=== PATIENT | male | born 1940 | race Caucasian/White ===

== ENCOUNTER → 2016-09-25 | Outpatient (CLI) | payer OTHER | LOC: MMPC 11:11 | DX: E11.9 Type 2 diabetes mellitus without complications (principal); R55 Syncope and collapse; I10 Essential (primary) hypertension; G47.30 Sleep apnea, unspecified; E66.9 Obesity, unspecified; I25.10 Atherosclerotic heart disease of native coronary artery without angina pectoris; L40.9 Psoriasis, unspecified; B35.4 Tinea corporis; E03.9 Hypothyroidism, unspecified | CPT/HCPCS: 99213; G0463 ==

== ENCOUNTER → 2016-12-18 | Outpatient (CLI) | payer OTHER ==
[2016-12-18 12:51] LABS: BASOPHILS # (AUTO) 0.06 10*3/UL; BASOPHILS % (AUTO) 0.7 % (0-1); EOSINOPHILS # (AUTO) 0.45 10*3/UL; EOSINOPHILS % (AUTO) 5.2 % (0-8); HEMATOCRIT 42.2 % (42.0-52.0); LYMPHOCYTES # (AUTO) 1.99 10*3/uL; MEAN CORPUSCULAR HEMOGLOBIN 28.7 PG (27-31); MEAN CORPUSCULAR HGB CONC 33.2 g/dL (33-37); MEAN CORPUSCULAR VOLUME 86.7 FL (80-90); MEAN PLATELET VOLUME 11.6 FL (7.4-12.2); MONOCYTES # (AUTO) 0.69 10*3/UL (0.3-0.8); NEUTROPHILS # (AUTO) 5.44 10*3/UL; NEUTROPHILS % (AUTO) 62.8 % (50-80); RED BLOOD COUNT 4.87 10^6/uL (4.70-6.10)
[2016-12-18 12:53] LABS: PLATELET MORPHOLOGY COMMENT NORMAL MORPHOLOGY (NORM); RBC MORPHOLOGY COMMENT NORMAL MORPHOLOGY (NORM); WBC MORPHOLOGY COMMENT NORMAL MORPHOLOGY (NORM)
[2016-12-18 13:12] LABS: HEMOGLOBIN A1C 6.89 % (4.2-6.0)
[2016-12-18 13:14] LABS: BUN/CREATININE RATIO 19.09 (6-20); CALCIUM 10.1 mg/dL (8.7-10.7)
== END ==
LOC: MOB LAB 11:54
DX: E11.9 Type 2 diabetes mellitus without complications (principal); I10 Essential (primary) hypertension; E03.9 Hypothyroidism, unspecified; G47.30 Sleep apnea, unspecified
CPT/HCPCS: 36415; 80048; 83036; 84443; 85025

== ENCOUNTER 2016-12-27 02:38 | Inpatient (IN) | payer OTHER ==
[2016-12-27] MEDS ORDERED: Pantoprazole Inj 40 MG in Normal Saline Flush 10 ML IVP ONE (03:00)
[2016-12-27] MEDS ORDERED: ONDANSETRON 4 MG/2 ML VIAL IVP ONE (03:00)
[2016-12-27] MEDS ORDERED: Sodium Chloride 0.9% 1,000 ML PRIMARY IV ONE (03:00)
[2016-12-27] MEDS ORDERED: NORMAL SALINE 10 ML SYRINGE FLUSH IVP PRN (03:00)
[2016-12-27 03:23] LABS: BASOPHILS # (AUTO) 0.08 10*3/UL; BASOPHILS % (AUTO) 0.7 % (0-1); EOSINOPHILS # (AUTO) 0.12 10*3/UL; HEMATOCRIT 46.4 % (42.0-52.0); HEMOGLOBIN 15.6 g/dL (14.0-18.0); LYMPHOCYTES # (AUTO) 1.37 10*3/uL; MEAN CORPUSCULAR HEMOGLOBIN 28.8 PG (27-31); MEAN CORPUSCULAR HGB CONC 33.6 g/dL (33-37); MEAN CORPUSCULAR VOLUME 85.8 FL (80-90); MEAN PLATELET VOLUME 11.8 FL (7.4-12.2); MONOCYTES # (AUTO) 0.65 10*3/UL (0.3-0.8); MONOCYTES % (AUTO) 5.3 % (5-15); NEUTROPHILS # (AUTO) 10.01 10*3/UL; NEUTROPHILS % (AUTO) 81.6 % (50-80); RED BLOOD COUNT 5.41 10^6/uL (4.70-6.10)
[2016-12-27 03:26] LABS: PLATELET MORPHOLOGY COMMENT NORMAL MORPHOLOGY (NORM); RBC MORPHOLOGY COMMENT NORMAL MORPHOLOGY (NORM); WBC MORPHOLOGY COMMENT NORMAL MORPHOLOGY (NORM)
[2016-12-27 03:34] LABS: BUN/CREATININE RATIO 21.66 (6-20); C-REACTIVE PROTEIN 0.8 mg/dL (0.0-0.9); CALCIUM 10.9 mg/dL (8.7-10.7); SERUM ALBUMIN 4.2 g/dL (3.5-4.8)
[2016-12-27 05:36] LABS: BILIRUBIN,URINE NEGATIVE (NEG); COLOR,URINE YELLOW; GLUCOSE, URINE (UA) NEGATIVE (NEG); NITRATE,URINE NEGATIVE (NEG); OCCULT BLOOD,URINE NEGATIVE (NEG); PROTEIN,URINE NEGATIVE (NEG); UROBILINOGEN,URINE 0.2 EU/dL (0.2)
[2016-12-27 05:37] LABS: CLARITY,URINE CLEAR (CLEAR); URINE SAMPLE TYPE CLEAN CATCH URINE
--- NOTE | 2016-12-27 05:49 | PDOC ---
General Adult HPI - General Chief Complaint: Nausea / Vomiting / Diarrhea Stated Complaint: Abdominal pain, N/V Date Seen by Provider: 12/27/16 Time Seen by Provider: 02:40 Source: POSITIVE: Patient, Spouse Exam Limitations: POSITIVE: No limitations Nurse's Notes Reviewed & Considered: Yes - History of Present Illness Initial Comment: The patient is a 76-year-old male who is brought to the emergency room by his . Patient states that around 5 PM yesterday, approximately 9-1/2 hours [employer] he developed poorly localized paraumbilical abdominal pain/discomfort. He had one large emesis and he states that this made him feel better. He and his also state that his abdomen appears distended. He last ate around 4:30 PM. He' s not had any known fevers. No melena, hematochezia, diarrhea, dysuria or hematuria. He's had an appendectomy. He has history of adult-onset diabetes mellitus and has had a CVA. History of hypertension and hypothyroidism. Have you received a tetanus shot in the past 10 years?: Yes Body Location Affected: REPORTS: Abdomen Timing: REPORTS: Constant Duration: <24 hours (Approximately 9-1/2 hours) Severity: Moderate Quality: REPORTS: "Pain" Context: REPORTS: None Modifying Factors: improves with: Vomiting (Times one) Associated Symptoms: Abdominal distention. Emesis 1 Similar Symptoms Previously: No Recent Care Received: REPORTS: Denies Any Prior Injuries Related to Current Complaint?: No - Patient Home Medications Home Medications: Home Medications Methocarbamol [Robaxin] 1 tab PO Q8H PRN #30 tab 08/08/15 Lisinopril 1 tab PO BID #180 tab 11/14/15 Glipizide 0.5 tab PO QD #15 tab 06/25/16 Clotrimazole/Betamethasone Dip [Lotrisone Cream] 45 gm TOPICAL BID PRN #45 tube 08/07/16 Levothyroxine Sodium 1 tab PO DAILY #90 tab 08/07/16 Lisinopril 1 tab PO BID #180 tab 08/07/16 Clopidogrel Bisulfate [Plavix] 1 tab ORAL QD #90 tab 10/24/16 Blood Sugar Diagnostic [Onetouch Ultra Test Strips] 1 strip IN BID PRN #50 strip 11/05/16 - Patient Allergies Allergies/Adverse Reactions: Allergies Allergy/AdvReac Type Severity Reaction Status Date / Time cephalexin Allergy Severe hives Verified 12/27/16 02:46 swelling atorvastatin calcium Allergy Intermediate SWELLING Verified 12/27/16 02:46 [From Lipitor] Past Medical History - heen HEENT History: Denies History Cardiovascular History: Hypertension, Previous NM Additional Cardiovasular History: HAS HAD EPISODES OF SYNCOPE, WAS SEEN IN THE ER ON 03/20 AND 03/22/15, HAD HALTER MONITOR . WAS SEEN BY DR AMARO FOR FOLLOW UP HALTER SHOWED BRADYCARDIA AND HYPOTENSION. DR AMARO DID WANT PATIENT TOF/UWITH AN ECHO, AND CAROTID US AND STRESS TEST WHICH PATIENT HAS REFUSED TO DO. DR PALMA IS AWARE AND HE WILL CALL AND DISCUSS WITH DR AMARO Respiratory History: Sleep Apnea, Other (please comment) Additional Respiratory History: HAS BLUE NAILBEDS FROM SILVER COLLOID INGESTION / BIPAP USE Gastrointestinal History: Diverticulitis Genitourinary History: Denies History Endocrine History: Type 2 Diabetes (oral), Hypothyroidism Musculoskeletal History: Arthritis, Gout, Limited ROM Prosthesis or Implant: Yes (screw in R ankle) Neurological History: CVA Additional Neurological History: STROKE DEMENTIA/residual left sided weakness Blood Disorders: Clotting Disorders Additional Blood Disorders History: 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 L WRIST Anesthesia Reactions: No Malignant Hyperthermia: No Significant Family History: COPD Past Medical History Reviewed: Reviewed - No Changes ROS - Limitations ROS Limitations: No Limitations Constitution: REPORTS: Denies Symptoms Cardiovascular: REPORTS: Denies Cardiac Symptoms Respiratory: REPORTS: Denies Resp Symptoms Neurological: REPORTS: Denies Neuro Symptoms Gastrointestinal: REPORTS: Abdominal Pain, Vomitting Endocrine: REPORTS: Denies Symptoms Musculoskeletal: REPORTS: Denies MS Symptoms Genitourinary: REPORTS: Denies Symptoms Eyes: REPORTS: Denies Symptoms ENT: REPORTS: Denies Symptoms Skin: REPORTS: Denies Skin Symptoms Lympathic: REPORTS: Denies Lympathic Symptoms Immunologic: POSITIVE: Denies Symptoms Psychiatric: POSITIVE: Denies Psych Symptoms General Adult Exam - General Appearance General Appearance: POSITIVE: Alert, Cooperative, No Acute Distress, No Evidence of Trauma - HEENT HEENT: POSITIVE: Head Inspection Nml, Eyes Inspection Nml, Ears Inspection Nml, Nose Inspection Nml, Oral/Dental Inspect. Nml, Pharynx Inspect. Nml, PERRL, EOMI - Neck Neck: POSITIVE: Normal Inspection, Thyroid Normal - Respiratory Respiratory: POSITIVE: No Respiratory Distress, Breath Sounds Normal, Chest Non- Tender - Cardiovascular Cardiovascular: POSITIVE: Regular Rate & Rhythm, No Murmur, No Gallop, PMI Normal Peripheral Pulses: Radial (R): 2+, Radial (L): 2+ - Abdomen Abdomen: Soft: (All Quadrants), Normal Bowel Sounds: (All Quadrants), No Splenomegaly: (All Quadrants), No Hepatomegaly: (All Quadrants), No Guarding: ( All Quadrants), No Rebound: (All Quadrants), No Palpable Pulse: (All Quadrants) , No Palpabale Mass: (All Quadrants), No Rigidity: (All Quadrants), Tenderness Noted: (RUQ), (LUQ), (RLQ), (LLQ) Additional Abdominal Details: Abdominal examination shows bowel sounds to be present. Abdomen does appear somewhat distended. Patient does complain of poorly localized abdominal discomfort/pain on direct palpation diffusely. No rebound. No guarding. No masses or organomegaly. - Back Back: POSITIVE: Normal Inspection - Skin Skin: POSITIVE: Normal Color, Warm, Dry, No Rash - Extremities Extremity: Non-Tender: (All Extremities), Normal ROM: (All Extremities), Normal Inspection: (All Extremities) - Neurological / Psychological Neurological: POSITIVE: Oriented X3, furniture cleaner Normal As Tested, Motor Normal, Sensation Normal, 5, 6 Images - Complete Complete: 1 - Discomfort on direct palpation; some distention. General Adult Progress - Results Reviewed by me Xrays/CTs/US Reviewed by me: Yes Discussed with Radiologist: Yes Radiology Findings: CT scan of abdomen and pelvis with IV contrast shows dilated loops of small bowel throughout the abdomen which is most significant within the J jejunum. No definite transition point seen. Compatible with either an ileus or low-grade partial small bowel obstruction. Also reported are multiple 4 cm centrilobular nodular opacities in the lower lobes. Lab Results Reviewed: Yes Lab Results:: Laboratory Results 12/27/16 12/27/16 Range/Units 03:20 05:32 WBC 12.26 H (4.8-10.8) 10^3/uL RBC 5.41 (4.70-6.10) 10^6/uL Hgb 15.6 (14.0-18.0) g/dL Hct 46.4 (42.0-52.0) % MCV 85.8 (80-90) FL MCH 28.8 (27-31) PG MCHC 33.6 (33-37) g/dL RDW Std Deviation 45.6 (39-50) fL RDW Coeff of Chaitanya 14.5 (11.5-14.5) % Plt Count 257 (140-350) 10*3/uL MPV 11.8 (7.4-12.2) FL Immature Gran % (Auto) 0.2 (0-5) % Neut % (Auto) 81.6 H (50-80) % Lymph % (Auto) 11.2 (10-50) % Sharp % (Auto) 5.3 (5-15) % Eos % (Auto) 1.0 (0-8) % Baso % (Auto) 0.7 (0-1) % Immature Gran # (Auto) 0.03 10*3/UL Neut # (Auto) 10.01 10*3/UL Lymph # (Auto) 1.37 10*3/uL Sharp # (Auto) 0.65 (0.3-0.8) 10*3/UL Eos # (Auto) 0.12 10*3/UL Baso # (Auto) 0.08 10*3/UL WBC Morphology Comment Normal morphology (NORM) Plt Morphology Comment Normal morphology (NORM) RBC Morph Comment Normal morphology (NORM) Sodium 141 (135-145) meq/L Potassium 4.1 (3.8-5.2) meq/L Chloride 101 (98-112) meq/L Carbon Dioxide 26 (23-33) meq/L Anion Gap 14 (5-20) BUN 26 H (7-22) mg/dL Creatinine 1.2 (0.70-1.50) mg/dL Estimated GFR (>60 ml/min/1.73m(2)) BUN/Creatinine Ratio 21.66 H (6-20) Glucose 273 H (78-110) mg/dL Calculated Osmolality 306.0 H (267-292) mOsm/kg Calcium 10.9 H (8.7-10.7) mg/dL Total Bilirubin 1.0 (0.3-1.2) mg/dL AST 24 (21-57) IU/L ALT 26 (21-72) IU/L Alkaline Phosphatase 96 (38-126) IU/L C-Reactive Protein 0.8 (0.0-0.9) mg/dL Total Protein 8.4 H (6.1-8.0) g/dL Albumin 4.2 (3.5-4.8) g/dL Globulin 4.2 H (2.50-4.10) g/dL Albumin/Globulin Ratio 1.00 L (1.3-2.0) mg/g Amylase 65 (30-110) U/L Lipase 28 (23-300) IU/L Ur Collection Type Clean catch urine Urine Color Yellow Urine Clarity Clear (CLEAR) Urine pH 7.0 (5.0-8.5) Ur Specific [place] 1.010 (1.005-1.030) Urine Protein Negative (NEG) mg/dl Urine Glucose (UA) Negative (NEG) mg/dL Urine Ketones Negative (NEG) Urine Occult Blood Negative (NEG) Urine Nitrate Negative (NEG) Urine Bilirubin Negative (NEG) Urine Urobilinogen 0.2 (0.2) EU/dL Ur Leukocyte Esterase Negative (NEG) Ur Culture Indicated? Culture not set - Patient's Progress Pain Medication Addressed: POSITIVE: Patient Refused School/Work Release Addressed: POSITIVE: Not Applicable Re-Examine Time: 05:20 Re-Examine Comment: Diagnosis discussed with patient and his . Case discussed with Dr. Lockett, hospitalist and Dr. Walters, surgeon. Patient admitted for further evaluation and treatment. Status: POSITIVE: Unchanged, Re-Examined Antibiotics Given: No - Consult Consult (If Yes, Name of Consulting MD & Time Called): Yes (Dr. Lockett, hospitalist and Dr. Walters, surgeon, [id number]) Consulting MD will see pt:: POSITIVE: [facility] Admit Counseled: POSITIVE: Patient, Family, RE: Lab Results, RE: Radiology Results, RE : DX, RE: Need for F/U Patient Care Time - Estimated PCT Patient Care Time (In Minutes): 50 Vital Signs - Recent Vital Signs Vital Signs: Vital Signs (Last 8 hours) Temp Pulse Resp BP Pulse Ox 12/27/16 02:38 97.4 F 88 18 178/111 96 - VS Reviewed Vital Signs Reviewed: Yes Discharge Clinical Impression: Nausea and vomiting, Small bowel obstruction Condition: Fair Date Decision to Admit to Inpatient: 12/27/16 Time Decision to Admit to Inpatient: 05:00
--- NOTE | 2016-12-27 07:06 | PDOC ---
History and Physical - History of Present Illness Date and Time of Service: 12/27/2016 7:53 AM Chief Complaint: Abdominal pain and vomiting that started 5 PM yesterday History of Present Illness: This is a 76 years old male with medical history significant for history of diabetes, hypertension, hypothyroidism, history of previous heart attacks in the and did not have any intervention, history of previous stroke in the with some residual weakness on the left side who presented to the hospital with history of abdominal pain felt in the mid upper abdomen started at 5 PM pain yesterday was severe, constant was nauseated then at midnight pain got worse then he vomited and because of that he came into the ER. Evaluation in the ER suggested that there is a bowel obstruction he was given fluids at and had NG and then he was admitted. Currently he said he has some discomfort in his abdomen he is rating his pain about 1-2 out of 10. There is no radiation. He is not nauseated. his abdominal is bloated. Last time he had a bowel movement he said was yesterday. Past Medical History Medical History: 1. Diabetes on oral hypoglycemic. 2. Hypertension. 3. Coronary artery disease status post [place]. His ago. 4. Sleep apnea. 5. History of CVA. 6. Hypothyroidism. 7. 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 Tonsillectomy. 2. Appendectomy. 3. Fracture left hand needed surgery in 2014. 4. Cataract. 5. History of right ankle fracture needed surgery Pertinent Family History: Father from alcoholism, mother had ischemic bowel Tobacco Use: Never Smoker Substance Use Type: None Alcohol Use: Other (Used to drink when he was younger) Medication / Allergies Home Medications: Home Medications Medication Instructions Recorded Confirmed Type Methocarbamol [Robaxin] 1 tab PO Q8H PRN #30 tab 08/08/15 12/27/16 Clinic Lisinopril 1 tab PO BID #180 tab 11/14/15 12/27/16 Clinic Glipizide 0.5 tab PO QD #15 tab 06/25/16 12/27/16 Clinic Clotrimazole/Betamethasone Dip 45 gm TOPICAL BID PRN #45 tube 08/07/16 12/27/16 Clinic [Lotrisone Cream] Levothyroxine Sodium 1 tab PO DAILY #90 tab 08/07/16 12/27/16 Clinic Lisinopril 1 tab PO BID #180 tab 08/07/16 12/27/16 Clinic Clopidogrel Bisulfate [Plavix] 1 tab ORAL QD #90 tab 10/24/16 12/27/16 Clinic Blood Sugar Diagnostic [Onetouch 1 strip IN BID PRN #50 strip 11/05/16 12/27/16 Clinic Ultra Test Strips] Allergies/Adverse Reactions: Allergies Allergy/AdvReac Type Severity Reaction Status Date / Time cephalexin Allergy Severe hives Verified 12/27/16 07:22 swelling atorvastatin calcium Allergy Intermediate SWELLING Verified 12/27/16 07:22 [From Lipitor] Review of Systems - Review of Systems All Systems: Reviewed & No Additional Complaints Except as Stated Exam - General General Appearance: POSITIVE: Obese Additional General Exam Details: Appears in minimal discomfort - Head Head Exam: POSITIVE: Normal Inspection, Atraumatic - Eye Eye Exam: POSITIVE: Normal Appearance - ENT ENT Exam: POSITIVE: Normal Exam - Neck Neck Exam: POSITIVE: Normal Inspection - Respiratory Respiratory Exam: POSITIVE: Clear to Auscultation - Bilaterally - Cardiovascular Cardiovascular Exam: POSITIVE: RRR - GI/Abdominal GI/Abdominal Exam: POSITIVE: Non Tender, Non Distended, Soft Additional GI/Abdominal Exam Details: Bowel sounds are sluggish - Rectal Rectal Exam: POSITIVE: Deferred - External Exam: POSITIVE: Deferred - Extremities Extremities Exam: POSITIVE: Normal Inspection Additional Extremities Exam Details: Scar of previous operation noted on the right ankle. Psoriasis is noted in the lower extremities and both upper extremities - Back Back Exam: POSITIVE: Normal Inspection - Neurological Neurological Exam: POSITIVE: Alert, Oriented x 3, CN II-XII Intact, Moves All Extremities Equally - Psychiatric Psychiatric Exam: POSITIVE: Normal Affect - Integumentary Integumentary Exam: POSITIVE: Normal Color Results - Labs CBC and BMP: 12/27/16 03:20 12/27/16 03:20 - Imaging Status: Report Reviewed by Me (There are mildly dilated loops of small bowel throughout the abdomen which is most significant within the jejunum. No definite transition point is seen. This is either an ileus versus low-grade partial small bowel obstruction. There are multiple 4 mm central lobular nodular opacities seen within the lower lobe may be secondary to aspiration. Follow-up CT is recommended) Assessment and Plan - Patient Problems (1) Small bowel obstruction Current Visit: Yes Status: Acute Comment: CT per discussion with the ER physician suggest bowel obstruction, will treat him conservatively with fluids, pain medication and antiemetics and NG suction. Will repeat x-ray tomorrow in a.m. (2) Hypertension Current Visit: Yes Status: Acute Comment: We'll put him on enalapril IV if his blood pressure more than 160 systolic (3) Diabetes Current Visit: Yes Status: Acute Comment: Will put him on sliding scale insulin. (4) History of factor V Leiden mutation Current Visit: Yes Status: Chronic Comment: Apparently he is on Plavix as he could not tolerate the Coumadin. He is been on plavix since the 90s. I Think we'll put him on Lovenox for prophylaxis and we'll hold the Plavix. (5) Pulmonary nodules Current Visit: Yes Status: Acute Comment: There is questionable nodules on the CT this need follow-up later on as an outpatient Photo / Body Diagrams - Uploaded Photos Uploaded Photos:
[2016-12-27] MEDS ORDERED: MORPHINE SULFATE 2 MG/1 ML IVP PRN (07:17)
[2016-12-27] MEDS ORDERED: ONDANSETRON 4 MG/2 ML VIAL IVP PRN (07:17)
[2016-12-27] MEDS ORDERED: LIDOCAINE W/ SODIUM BICARB 0.5 ML SYR SUBD PRN (07:17)
[2016-12-27] MEDS ORDERED: Sodium Chloride 0.9% 1,000 ML PRIMARY IV SCH (07:17)
[2016-12-27] MEDS ORDERED: ENALAPRILAT DIHYDRATE 1.25 MG/1 ML VIAL IVP PRN (07:47)
--- NOTE | 2016-12-27 08:57 | CONSULT ---
Consult Note - Consult Consult Date: 12/27/16 Reason for Consult: PreOp Consulation : General Surgery Requesting Physician: Dr. Lockett Primary Care Provider: Andrew Fall MD - History of Present Illness History of Present Illness: This is a 76-year-old male who comes in with a one-day history of abdominal pain. Pain started at 5:00 PM on 12/26/2016. Shortly before coming to the hospital he threw up. His workup included a CBC that showed a slightly elevated white count. CT scan of the abdomen shows a partial small bowel obstruction. There is air and stool in the colon. Patient states that since put on the NG down he is feeling that her. He is not having any current abdominal pain. The patient states that he has passed some gas this morning. His last bowel movement was yesterday morning prior to having abdominal pain. Patient has had a colonoscopy 6 years ago. He states that this was normal. He also had a small bowel pill endoscopy that was also normal. He cannot tell me why he had this study. Patient had an appendectomy many years ago Review of Systems - Constitutional Constitutional: REPORTS: General Health Good. DENIES: Negative System Review, General Health Excellent, General Health Fair, General Health Poor, Weight Loss , Weight Gain, Weight Change Intentional, Fever/Chills, Night Sweats, Fatigue, Diffuse Arthralgias, Diffuse Myalgias, Malaise, Weakness, Recent Illness, Other , See HPI - Integumentary Integumentary: REPORTS: Negative System Review - Respiratory Respiratory: DENIES: Negative System Review, Cough, Sputum, Dyspnea At Rest, Dyspnea with Exertion, Pleuritic Pain, Hemoptysis, Wheezing, Other, See HPI - Cardiovascular Cardiovascular: REPORTS: Negative System Review - Gastrointestinal Gastrointestinal / Abdominal: REPORTS: Vomiting, Abdominal Pain - Genitourinary Genitourinary: DENIES: Negative System Review, Pain, Burning, Hematuria, Incontinence, Urgency, Hesitant Stream, Decreased Stream, Nocutria, Discharge, Sexual Dyfunction, Other, See HPI - Musculoskeletal Musculoskeletal: DENIES: Negative System Review, Back Pain, Neck Pain, Swelling , Calf Pain, Muscle Pain, Cramping, Joint Pain - Hands, Joint Pain - Elbows, Joint Pain - Shoulders, Joint Pain - Hips, Joint Pain - Knees, Joint Pain - Feet , AM Stiffness, Other, See HPI - Additonal Details Additional ROS Details: Patient has had a history of fracture long bone of the right lower extremity. At that time he had a DVT. He states that he has factor V Leiden deficiency. He takes Plavix to prevent DVTs. He is also had 3 strokes and 2 heart attacks. States the last one was in Past Medical History Medical History: 1. Diabetes on oral hypoglycemic. 2. Hypertension. 3. Coronary artery disease status post [place]. His ago. 4. Sleep apnea. 5. History of CVA. 6. Hypothyroidism. 7. 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 Tonsillectomy. 2. Appendectomy. 3. Fracture left hand needed surgery in 2014. 4. Cataract. 5. History of right ankle fracture needed surgery Pertinent Family History: Father from alcoholism, mother had ischemic bowel , father had factor V Leiden deficiency Tobacco Use: Never Smoker Substance Use Type: None Alcohol Use: Other (Used to drink when he was younger) Medication / Allergies Home Medications: Home Medications Medication Instructions Recorded Confirmed Type Methocarbamol [Robaxin] 1 tab PO Q8H PRN #30 tab 08/08/15 12/27/16 Clinic Lisinopril 1 tab PO BID #180 tab 11/14/15 12/27/16 Clinic Glipizide 0.5 tab PO QD #15 tab 06/25/16 12/27/16 Clinic Clotrimazole/Betamethasone Dip 45 gm TOPICAL BID PRN #45 tube 08/07/16 12/27/16 Clinic [Lotrisone Cream] Levothyroxine Sodium 1 tab PO DAILY #90 tab 08/07/16 12/27/16 Clinic Lisinopril 1 tab PO BID #180 tab 08/07/16 12/27/16 Clinic Clopidogrel Bisulfate [Plavix] 1 tab ORAL QD #90 tab 10/24/16 12/27/16 Clinic Blood Sugar Diagnostic [Onetouch 1 strip IN BID PRN #50 strip 11/05/16 12/27/16 Clinic Ultra Test Strips] Allergies/Adverse Reactions: Allergies Allergy/AdvReac Type Severity Reaction Status Date / Time cephalexin Allergy Severe hives Verified 12/27/16 07:22 swelling atorvastatin calcium Allergy Intermediate SWELLING Verified 12/27/16 07:22 [From Lipitor] Exam - Vitals Vital Signs: Vital Signs Temperature 97.8 F Temperature Source Temporal Artery Scan Pulse Rate [Pulse Oximeter] 75 Respiratory Rate 20 Blood Pressure [Right Arm] 178/81 Blood Pressure 165/86 Pulse Ox 93 Oxygen Delivery Method Room Air Height 5 ft 6 in Weight 124.556 kg - General General Appearance: POSITIVE: No Acute Distress - Eye Eye Exam: POSITIVE: PERRL - Neck Neck Exam: POSITIVE: Full ROM - Respiratory Respiratory Exam: POSITIVE: Clear to Auscultation - Bilaterally, Breathing Non Labored - Cardiovascular Cardiovascular Exam: POSITIVE: RRR, No Murmur - GI/Abdominal GI/Abdominal Exam: POSITIVE: Non Tender, Soft, Distended, No Hepatomegaly, No Splenomegaly Results - Labs CBC and BMP: 12/27/16 03:20 12/27/16 03:20 Assessment and Plan - Patient Problems (1) Partial small bowel obstruction Current Visit: Yes Status: Acute - Assessment / Plan Additional Assessment/Plan Details: At this point do recommend the patient have an NG tube lumen section. He'll remain nothing by mouth. Repeat flatplate and upright in the morning. I do not think he needs surgery at this time.
[2016-12-27] MEDS: Insulin Lispro Flexpen 300 UNIT/3 ML INSULN.PEN SUBCUT SCH ×3 (12:17→21:15)
--- NOTE | 2016-12-27 14:32 | DI ---
EXAM: CT Abdomen and Pelvis With Contrast HISTORY: abdominal pain. TECHNIQUE: Contiguous transaxial computed tomographic images were obtained of the abdomen and pelvis per routine protocol with IV contrast. Coronal and sagittal reformat images were performed. COMPARISON: None. FINDINGS: LUNG BASES: 4 mm central lobular nodular opacities are seen within the lower lobes. INFERIOR MEDIASTINUM: there is a containing hiatal hernia. LIVER: Normal in size and attenuation with no focal abnormalities. GALLBLADDER AND BILE DUCTS: Gallbladder is normal in appearance with no gallbladder wall thickening or pericholecystic fluid. No biliary dilatation. SPLEEN: Normal in size and attenuation with no focal abnormalities. PANCREAS: Normal in size and attenuation with no focal abnormalities. ADRENALS: Normal in size and attenuation with no focal abnormalities. : Kidneys enhance normally with no focal abnormalities. No evidence of urinary obstruction or obst ructing urinary calculi. Ureters are normal throughout their course. Urinary bladder is within norm al limits. GI: there is very mild dilation of the small bowel measuring up to 3.8 cm in diameter. This is most s ignificant within the jejunum. No definite transition point is seen. There is a small amount of mesen teric fluid. A small amount of fluid is seen surrounding the spleen. The appendix is not seen but the re are no findings to suggest appendicitis. PELVIS: Within normal limits with no mass identified. There is a small fat containing left inguinal h ernia. VESSELS: Aorta is normal in size with no evidence of aneurysm or rupture. BONES: No acute bony abnormality. No suspicious osteolytic or osteoblastic lesion. There are bilate ral pars defects at L5 with grade 1 anterolisthesis of L5 on S1. SOFT TISUES: Unremarkable. IMPRESSION: 1. There are mildly dilated loops of small bowel throughout the abdomen which is most significant wit hin the jejunum. No definite transition point is seen. This is either an ileus versus low grade parti al small bowel obstruction. 2. There are multiple 4 mm central lobular nodular opacities seen within the lower lobes which may be secondary to aspiration. Follow-up CT chest is recommended to ensure resolution.
[2016-12-27] MEDS: ENALAPRILAT DIHYDRATE 1.25 MG/1 ML VIAL IVP PRN (16:56)
[2016-12-28] MEDS: ENALAPRILAT DIHYDRATE 1.25 MG/1 ML VIAL IVP PRN (00:46)
[2016-12-28] MEDS: NORMAL SALINE 10 ML SYRINGE FLUSH IVP PRN ×2 (00:47→09:32)
[2016-12-28 06:07] LABS: BASOPHILS # (AUTO) 0.05 10*3/UL; BASOPHILS % (AUTO) 0.6 % (0-1); EOSINOPHILS % (AUTO) 4.4 % (0-8); HEMOGLOBIN 14.1 g/dL (14.0-18.0); LYMPHOCYTES # (AUTO) 2.34 10*3/uL; MEAN CORPUSCULAR HGB CONC 32.8 g/dL (33-37); MEAN CORPUSCULAR VOLUME 88.3 FL (80-90); MEAN PLATELET VOLUME 11.6 FL (7.4-12.2); MONOCYTES # (AUTO) 0.65 10*3/UL (0.3-0.8); MONOCYTES % (AUTO) 7.2 % (5-15); NEUTROPHILS # (AUTO) 5.63 10*3/UL; NEUTROPHILS % (AUTO) 61.9 % (50-80); RED BLOOD COUNT 4.87 10^6/uL (4.70-6.10)
[2016-12-28 06:15] LABS: BUN/CREATININE RATIO 15.45 (6-20); CALCIUM 9.7 mg/dL (8.7-10.7)
[2016-12-28 06:20] LABS: PLATELET MORPHOLOGY COMMENT NORMAL MORPHOLOGY (NORM); RBC MORPHOLOGY COMMENT NORMAL MORPHOLOGY (NORM); WBC MORPHOLOGY COMMENT NORMAL MORPHOLOGY (NORM)
--- NOTE | 2016-12-28 08:53 | PDOC(PROG) ---
Date and Time of Service: 12/28/2016 855 Interval History: Patient states that he is feeling better. He has no abdominal pain. He is passing gas but no bowel movement Objective : Data - Labs CBC and BMP: 12/28/16 05:40 12/28/16 05:40 Labs - Last 24 Hours: Laboratory Results 12/28/16 Range/Units 05:40 WBC 9.08 (4.8-10.8) 10^3/uL RBC 4.87 (4.70-6.10) 10^6/uL Hgb 14.1 (14.0-18.0) g/dL Hct 43.0 (42.0-52.0) % MCV 88.3 (80-90) FL MCH 29.0 (27-31) PG MCHC 32.8 L (33-37) g/dL RDW Std Deviation 47.0 (39-50) fL RDW Coeff of Chaitanya 14.8 H (11.5-14.5) % Plt Count 239 (140-350) 10*3/uL MPV 11.6 (7.4-12.2) FL Immature Gran % (Auto) 0.1 (0-5) % Neut % (Auto) 61.9 (50-80) % Lymph % (Auto) 25.8 (10-50) % [place] % (Auto) 7.2 (5-15) % Eos % (Auto) 4.4 (0-8) % Baso % (Auto) 0.6 (0-1) % Immature Gran # (Auto) 0.01 10*3/UL Neut # (Auto) 5.63 10*3/UL Lymph # (Auto) 2.34 10*3/uL [place] # (Auto) 0.65 (0.3-0.8) 10*3/UL Eos # (Auto) 0.40 10*3/UL Baso # (Auto) 0.05 10*3/UL WBC Morphology Comment Normal morphology (NORM) Plt Morphology Comment Normal morphology (NORM) RBC Morph Comment Normal morphology (NORM) Sodium 142 (135-145) meq/L Potassium 4.2 (3.8-5.2) meq/L Chloride 110 (98-112) meq/L Carbon Dioxide 24 (23-33) meq/L Anion Gap 8 (5-20) BUN 17 (7-22) mg/dL Creatinine 1.1 (0.70-1.50) mg/dL Estimated GFR (>60 ml/min/1.73m(2)) BUN/Creatinine Ratio 15.45 (6-20) Glucose 155 H (78-110) mg/dL Calculated Osmolality 298.0 H (267-292) mOsm/kg Calcium 9.7 (8.7-10.7) mg/dL - Vital Signs Vital Signs and I&O: Vital Signs - Last Taken Temperature 97.1 F 12/28/16 05:00 Pulse Rate 69 12/28/16 07:00 Respiratory Rate 16 12/28/16 07:00 Blood Pressure 146/94 12/28/16 07:00 Pulse Ox 91 12/28/16 05:12 Intake and Output (24hr x 4 totals) 12/26/16 12/27/16 12/28/16 12/29/16 05:59 05:59 05:59 05:59 Intake Total 2461 Output Total 1725 200 Balance 736 -200 Objective : Exam - General General Appearance: No Acute Distress, Cooperative - Head Head Exam: Normal Inspection, Normocephalic, Atraumatic - Eye Eye Exam: Normal Appearance, PERRL, EOMI - GI/Abdominal GI/Abdominal Exam: Normal Bowel Sounds, Non Tender, Non Distended, Soft Assessment and Plan - Patient Problems (1) Partial small bowel obstruction Current Visit: Yes Status: Acute - Assessment / Plan Additional Assessment/Plan Details: Since the patient is passing gas. And his x-ray actually does not look like a complete bowel obstruction. I feel there is some dilated loops of bowel but no air-fluid levels. I think he can be tried on some liquid around the clamped NG tube. If he tolerates this may be the DC his NG tube and advance his diet. Dr. Tavo Terry will be covering for me
[2016-12-28] MEDS: Insulin Lispro Flexpen 300 UNIT/3 ML INSULN.PEN SUBCUT SCH ×4 (08:55→20:43)
[2016-12-28] MEDS ORDERED: Pantoprazole Inj 40 MG in Normal Saline Flush 10 ML IVP SCH (09:00)
[2016-12-28] MEDS: ENOXAPARIN SODIUM 40 MG/0.4 ML SYRINGE SUBCUT SCH (09:33)
--- NOTE | 2016-12-28 09:38 | PDOC(PROG) ---
Date and Time of Service: 12/28/2016 9:37 AM Interval History: Subjective Patient feels better, he is passing gas and he just had a bowel movement. He is denying abdominal pain. Objective : Data - Labs CBC and BMP: 12/28/16 05:40 12/28/16 05:40 Labs - Last 24 Hours: Laboratory Results 12/28/16 Range/Units 05:40 WBC 9.08 (4.8-10.8) 10^3/uL RBC 4.87 (4.70-6.10) 10^6/uL Hgb 14.1 (14.0-18.0) g/dL Hct 43.0 (42.0-52.0) % MCV 88.3 (80-90) FL MCH 29.0 (27-31) PG MCHC 32.8 L (33-37) g/dL RDW Std Deviation 47.0 (39-50) fL RDW Coeff of Chaitanya 14.8 H (11.5-14.5) % Plt Count 239 (140-350) 10*3/uL MPV 11.6 (7.4-12.2) FL Immature Gran % (Auto) 0.1 (0-5) % Neut % (Auto) 61.9 (50-80) % Lymph % (Auto) 25.8 (10-50) % [place] % (Auto) 7.2 (5-15) % Eos % (Auto) 4.4 (0-8) % Baso % (Auto) 0.6 (0-1) % Immature Gran # (Auto) 0.01 10*3/UL Neut # (Auto) 5.63 10*3/UL Lymph # (Auto) 2.34 10*3/uL [place] # (Auto) 0.65 (0.3-0.8) 10*3/UL Eos # (Auto) 0.40 10*3/UL Baso # (Auto) 0.05 10*3/UL WBC Morphology Comment Normal morphology (NORM) Plt Morphology Comment Normal morphology (NORM) RBC Morph Comment Normal morphology (NORM) Sodium 142 (135-145) meq/L Potassium 4.2 (3.8-5.2) meq/L Chloride 110 (98-112) meq/L Carbon Dioxide 24 (23-33) meq/L Anion Gap 8 (5-20) BUN 17 (7-22) mg/dL Creatinine 1.1 (0.70-1.50) mg/dL Estimated GFR (>60 ml/min/1.73m(2)) BUN/Creatinine Ratio 15.45 (6-20) Glucose 155 H (78-110) mg/dL Calculated Osmolality 298.0 H (267-292) mOsm/kg Calcium 9.7 (8.7-10.7) mg/dL - Imaging X-Ray Status: Image Pending (X-ray showed some dilated small bowel.) Objective : Exam - General General Appearance: No Acute Distress, Cooperative, Obese - Head Head Exam: Normal Inspection, Atraumatic - Eye Eye Exam: Normal Appearance - ENT ENT Exam: Normal Exam - Neck Neck Exam: Normal Inspection - Respiratory Respiratory Exam: Clear to Auscultation - Bilaterally - Cardiovascular Cardiovascular Exam: RRR - GI/Abdominal GI/Abdominal Exam: Normal Bowel Sounds, Non Tender, Non Distended, Soft - Rectal Rectal Exam: Deferred - External Exam: Deferred - Extremities Extremities Exam: Normal Inspection - Back Back Exam: Normal Inspection - Neurological Neurological Exam: Alert, Oriented x 3, CN II-XII Intact, Moves All Extremities Equally - Psychiatric Psychiatric Exam: Normal Affect - Integumentary Additional Integumentary Exam Details: Psoriatic patches noted in his limbs Assessment and Plan - Patient Problems (1) Small bowel obstruction Current Visit: Yes Status: Acute Comment: I think this is resolving, though has some dilated bowel on the x-ray but the fact that his passing gas and had the a bowel movement I think we can try giving him coffee as he wanted and then clamp the tube, if no pain and nausea or vomiting then will pull the tube out. Will put him on clear liquid and watch overnight. (2) Hypertension Current Visit: Yes Status: Acute Comment: Continue IV enalapril for now. (3) Diabetes Current Visit: Yes Status: Acute Comment: Continue sliding scale (4) History of factor V Leiden mutation Current Visit: Yes Status: Chronic Comment: He is on Lovenox continue (5) Pulmonary nodules Current Visit: Yes Status: Acute Comment: This need follow-up later on as an outpatient Photo / Body Diagrams - Uploaded Photos Uploaded Photos:
--- NOTE | 2016-12-28 09:40 | DI ---
XR ABDOMEN ACUTE 2/ABD 1/CXR,12/28/2016 7:00 AM: Clinical History: Partial small bowel obstruction Previous Exam: CT scan performed one day prior. Findings: Routine acute abdominal series is obtained demonstrating a nasogastric tube with the tip in good posi tion. There are still some prominent air-filled loops of small bowel throughout the abdomen. There is some air seen within the colon. There is elevation of left hemidiaphragm. The lungs are otherwise clear. Skeletal structures are unremarkable. A few pathologic calcifications are seen. Impression: Prominent air-filled loops of small bowel with air seen within the colon most consistent with a parti al small bowel obstruction.
[2016-12-28] MEDS ORDERED: LISINOPRIL 10 MG TABLET PO SCH (17:12)
[2016-12-29] MEDS ORDERED: LEVOTHYROXINE 25 MCG TABLET PO SCH (06:30)
[2016-12-29] MEDS ORDERED: PANTOPRAZOLE 40 MG TABLET PO SCH (07:00)
[2016-12-29 07:03] VITALS: RESP 20
[2016-12-29] MEDS: Insulin Lispro Flexpen 300 UNIT/3 ML INSULN.PEN SUBCUT SCH ×2 (07:08→13:38)
[2016-12-29] MEDS: ENOXAPARIN SODIUM 40 MG/0.4 ML SYRINGE SUBCUT SCH (09:21)
[2016-12-29 12:26] VITALS: TEMP 97.4
[2016-12-29] MEDS ORDERED: KETOROLAC 15 MG/1 ML VIAL IVP ONE (12:44)
--- NOTE | 2016-12-29 13:24 | DCSUMMARY ---
Hospitalization Summary Hospital Course: Final Discharge Diagnosis: Current Visit Problems Problem Status Priority Diagnosed Code Diabetes Acute E11.9 Hypertension Acute I10 Nausea and vomiting Acute R11.2 Partial small bowel obstruction Acute Pulmonary nodules Acute R91.8 Small bowel obstruction Acute K56.69 History of factor V Leiden mutation Chronic Z86.2 Obesity Diagnostic Data, Laboratory Data, and Procedures of Signifigance: Laboratory Results 12/27/16 12/27/16 12/28/16 Range/Units 03:20 05:32 05:40 WBC 12.26 H 9.08 (4.8-10.8) 10^3/uL RBC 5.41 4.87 (4.70-6.10) 10^6/uL Hgb 15.6 14.1 (14.0-18.0) g/dL Hct 46.4 43.0 (42.0-52.0) % MCV 85.8 88.3 (80-90) FL MCH 28.8 29.0 (27-31) PG MCHC 33.6 32.8 L (33-37) g/dL RDW Std Deviation 45.6 47.0 (39-50) fL RDW Coeff of Chaitanya 14.5 14.8 H (11.5-14.5) % Plt Count 257 239 (140-350) 10*3/uL MPV 11.8 11.6 (7.4-12.2) FL Immature Gran % (Auto) 0.2 0.1 (0-5) % Neut % (Auto) 81.6 H 61.9 (50-80) % Lymph % (Auto) 11.2 25.8 (10-50) % [place] % (Auto) 5.3 7.2 (5-15) % Eos % (Auto) 1.0 4.4 (0-8) % Baso % (Auto) 0.7 0.6 (0-1) % Immature Gran # (Auto) 0.03 0.01 10*3/UL Neut # (Auto) 10.01 5.63 10*3/UL Lymph # (Auto) 1.37 2.34 10*3/uL [place] # (Auto) 0.65 0.65 (0.3-0.8) 10*3/UL Eos # (Auto) 0.12 0.40 10*3/UL Baso # (Auto) 0.08 0.05 10*3/UL WBC Morphology Comment Normal morphology Normal morphology (NORM) Plt Morphology Comment Normal morphology Normal morphology (NORM) RBC Morph Comment Normal morphology Normal morphology (NORM) Sodium 141 142 (135-145) meq/L Potassium 4.1 4.2 (3.8-5.2) meq/L Chloride 101 110 (98-112) meq/L Carbon Dioxide 26 24 (23-33) meq/L Anion Gap 14 8 (5-20) BUN 26 H 17 (7-22) mg/dL Creatinine 1.2 1.1 (0.70-1.50) mg/dL Estimated GFR (>60 ml/min/1.73m(2)) BUN/Creatinine Ratio 21.66 H 15.45 (6-20) Glucose 273 H 155 H (78-110) mg/dL Calculated Osmolality 306.0 H 298.0 H (267-292) mOsm/kg Calcium 10.9 H 9.7 (8.7-10.7) mg/dL Total Bilirubin 1.0 (0.3-1.2) mg/dL AST 24 (21-57) IU/L ALT 26 (21-72) IU/L Alkaline Phosphatase 96 (38-126) IU/L C-Reactive Protein 0.8 (0.0-0.9) mg/dL Total Protein 8.4 H (6.1-8.0) g/dL Albumin 4.2 (3.5-4.8) g/dL Globulin 4.2 H (2.50-4.10) g/dL Albumin/Globulin Ratio 1.00 L (1.3-2.0) mg/g Amylase 65 (30-110) U/L Lipase 28 (23-300) IU/L Ur Collection Type Clean catch urine Urine Color Yellow Urine Clarity Clear (CLEAR) Urine pH 7.0 (5.0-8.5) Ur Specific [place] 1.010 (1.005-1.030) Urine Protein Negative (NEG) mg/dl Urine Glucose (UA) Negative (NEG) mg/dL Urine Ketones Negative (NEG) Urine Occult Blood Negative (NEG) Urine Nitrate Negative (NEG) Urine Bilirubin Negative (NEG) Urine Urobilinogen 0.2 (0.2) EU/dL Ur Leukocyte Esterase Negative (NEG) Ur Culture Indicated? Culture not set History and Physical pertinent to Admission: Past Medical History Medical History: 1. Diabetes on oral hypoglycemic. 2. Hypertension. 3. Coronary artery disease status post [place]. His ago. 4. Sleep apnea. 5. History of CVA. 6. Hypothyroidism. 7. Factor V [place] mutation with previous DVT Surgical History: 1. Tonsillectomy. 2. Appendectomy. 3. Fracture left hand needed surgery in 2015. 4. Cataract. 5. History of right ankle fracture needed surgery Pertinent Family History: Father from alcoholism, mother had ischemic bowel Tobacco Use: Never Smoker Substance Use Type: None Alcohol Use: Other (Used to drink when he was younger) Course of Hospitalization: Is a very nice 76-year-old gentleman with past medical history significant for hypothyroidism, hypertension, history of previous [place] and diabetes also has strokes in the with some residual weakness on the left side was admitted with abdominal pain to the ER with some nausea and vomiting diagnosed with the small bowel obstruction partial NG tube and IV fluids were started Dr. tera Bustamante was consult did patient had a BM yesterday is been started on clear liquids which he is tolerating we did advance his diet today and ordered another x-ray of his abdomen. Patient just had a bowel movement after he tolerated a regular diet with a grilled chicken and asparagus he will be discharged home in stable improved condition he has no abdominal pain and his headache is also reserve resolved On the date of discharge, the patient was examined: Gen.: No acute distress, alert, nontoxic Heart: Regular rate and rhythm, no murmurs, clicks, gallops, or rubs Lungs: Clear to auscultation bilaterally, breathing is nonlabored Abdomen/GI: Normal tones on auscultation, soft, nontender, nondistended Musculoskeletal/extremities: No clubbing, cyanosis, or edema Vitals reviewed and are listed below Vital Signs (24 hrs) Temp Pulse Pulse Resp BP Pulse Ox 12/29/16 12:23 97.4 F 72 20 153/71 97 12/29/16 07:02 97.8 F 60 20 149/62 93 12/29/16 05:12 97 12/29/16 04:38 98.4 F 63 21 130/55 98 12/28/16 23:55 97.9 F 60 20 152/60 95 12/28/16 20:43 98.2 F 61 18 171/71 96 12/28/16 19:00 69 66 12/28/16 16:32 97.4 F 66 16 184/73 96 Assessment and Plan: 1. As per discharge assessments above 2. Disposition: Home follow with Dr. tera Bustamante's 3. Condition on discharge, stable and improved. 4. Diet: regular diet 5. Activities: resume normal activities 6. Follow-Up: 1. PCP as needed 2. 7. Medications at the Time of Discharge: Home Medications Medication Instructions Recorded Confirmed Type Methocarbamol Robaxin 1 tab PO Q8H PRN #30 tab 08/08/15 12/27/16 Clinic Lisinopril 1 tab PO BID #180 tab 11/14/15 12/27/16 Clinic Glipizide 0.5 tab PO QD #15 tab 06/25/16 12/27/16 Clinic Clotrimazole/Betamethasone Dip 45 gm TOPICAL BID PRN #45 tube 08/07/16 12/27/16 Clinic Lotrisone Cream Levothyroxine Sodium 1 tab PO DAILY #90 tab 08/07/16 12/27/16 Clinic Lisinopril 1 tab PO BID #180 tab 08/07/16 12/27/16 Clinic Clopidogrel Bisulfate Plavix 1 tab ORAL QD #90 tab 10/24/16 12/27/16 Clinic Blood Sugar Diagnostic Onetouch 1 strip IN BID PRN #50 strip 11/05/16 12/27/16 Clinic Ultra Test Strips 8. Time, care, counseling and coordination of care for this discharge is greater than 30 minutes. Exam - Vitals Vital Signs: Vital Signs Temperature 97.4 F Temperature Source Temporal Artery Scan Pulse Rate [Apical] 69 Pulse Rate [Telemetry] 58 Pulse Rate [Pulse Oximeter] 72 Pulse Rate 55 Respiratory Rate 20 Blood Pressure [Left Arm] 153/71 Blood Pressure [Right Arm] 178/81 Blood Pressure 165/86 Pulse Ox 97 Oxygen Flow Rate 2 Oxygen Delivery Method Room Air Height 5 ft 6 in Weight 122.742 kg
--- NOTE | 2016-12-29 15:28 | DI ---
HISTORY: Follow up small bowel obstruction. COMPARISON: 12/28/2016. FINDINGS: Supine and upright view examination, compared to he previous examination, reveals the bow el gas pattern to be unremarkable. There is no definite evidence of bowel obstruction and no free ai r in the peritoneal cavity. No abnormal calcifications are noted. IMPRESSION: 1. No acute bowel obstruction identified. Clinical correlation is requested.
== END 2016-12-29 14:37 | disposition home or self-care (01) | DRG 389 ==
LOC: ER 02:38 → MED/SURG 05:37
PROVIDERS: ADMIT Internal Medicine; ATTEND Internal Medicine
DX: K56.60 Unspecified intestinal obstruction (principal); R11.2 Nausea with vomiting, unspecified; R10.9 Unspecified abdominal pain; D68.51 Activated protein C resistance; I10 Essential (primary) hypertension; E11.9 Type 2 diabetes mellitus without complications; R91.1 Solitary pulmonary nodule
CPT/HCPCS: 36415; 74020; 74022; 74177; 80048; 80053; 81003; 82150; 82948; 83690; 85025; 86140; 94761; 96361; 96374; 96375; 99285; J1650; J1885; J2405; J3490; J7030

== ENCOUNTER → 2017-03-12 | Outpatient (CLI) | payer OTHER | LOC: MMPC 11:11 | DX: E11.9 Type 2 diabetes mellitus without complications (principal); I10 Essential (primary) hypertension; D68.51 Activated protein C resistance; G47.30 Sleep apnea, unspecified; E66.9 Obesity, unspecified; I25.10 Atherosclerotic heart disease of native coronary artery without angina pectoris; E03.9 Hypothyroidism, unspecified | CPT/HCPCS: 99213; G0463 ==